=== PATIENT | male | born 1995 | race Caucasian/White ===

== ENCOUNTER 2019-12-21 05:44 | Outpatient (RCR) | payer OTHER ==
[~2019-12-21] VITALS: Ht 187 cm; Wt 88.1 kg
[2019-12-21] MEDS ORDERED: VORT10TA PO (12:35)
[2019-12-21] MEDS ORDERED: AMPH20TA2 PO (12:35)
[2019-12-21] MEDS ORDERED: FINA1TAB16 PO (12:35)
== END 2019-12-21 14:00 | disposition home or self-care (01) ==
LOC: PREOP 05:44
PROVIDERS: ATTEND Surgery
DX: Z01.818 Encounter for other preprocedural examination (principal)

== ENCOUNTER → 2019-12-23 | Outpatient (CLI) | payer OTHER ==
[~2019-12-23] MED LIST: AMPH20TA2 PO; FINA1TAB16 PO; VORT10TA PO
== END ==
LOC: LAB FS 10:05
PROVIDERS: ATTEND Surgery
DX: K62.5 Hemorrhage of anus and rectum (principal); Z20.828 Contact with and (suspected) exposure to other viral communicable diseases
CPT/HCPCS: 87635

== ENCOUNTER 2019-12-26 09:27 | Day surgery (SDC) | payer OTHER ==
[2019-12-26] VITALS (9 sets, daily range): BP systolic 77–132; BP diastolic 44–87
[~2019-12-26] VITALS: Ht 187 cm; Wt 88.1 kg
[2019-12-26] MEDS ORDERED: LACTATED RINGERS 1,000 ML IV ONE (09:37)
[2019-12-26] MEDS ORDERED: LACTATED RINGERS 1,000 ML IV STA (09:49)
--- NOTE | 2019-12-26 10:30 | Progress Note-Pre Operative ---
Pre-Operative Progress Note H&P Reviewed The H&P was reviewed, patient examined and no changes noted. Time Seen by Provider: 10:28 Date H&P Reviewed: Dec 26, 2019 Time H&P Reviewed: 10: Pre-Operative Diagnosis: rectal bleed SAMEERA HYATT DO Dec 26, 2019 10:30
[2019-12-26] MEDS ORDERED: MIDAZOLAM 2 MG/2 ML (VERSED) VIAL ONE (10:33)
[2019-12-26] MEDS ORDERED: PROPOFOL INJECTION 50 ML IV ONE (10:33)
--- NOTE | 2019-12-26 10:58 | Progress Note-Post Operative ---
Post-Operative Progess Note Surgeon (s)/Cam Maker (s) Surgeon SAMEERA HYATT DO Cam Maker: VENUS Cohen Pre-Operative Diagnosis rectal bleed Post-Operative Diagnosis same plus internal hemorrhoids anal fissure Procedure & Operative Findings Date of Procedure 12/26/19 Procedure Performed/Findings colonoscopy Anesthesia Type IV sedation by PRESSURE DISPATCHER Estimated Blood Loss Estimated blood loss (mL): none Specimens/Packing Specimens Removed none SAMEERA HYATT DO Dec 26, 2019 10:58
--- NOTE | 2019-12-26 10:59 | Endoscopy Discharge Instruct ---
Endo Procedure/Findings Findings 1.: Internal Hemorrhoids 2.: Other Findings (Anal fissure) Discharge Instructions - Activity: You might feel a little sleepy until tomorrow. This is due to the medicine you received to relax you. Until tomorrow, you should: NOT drive a car, operate machinery or power tools. NOT drink any alcoholic beverages. NOT make any important decisions or sign importortant papers. Do not return to work until tomorrow, unless otherwise instructed. Resume previous activities tomorrow. Diet: Start by taking liquids. If you tolerate liquids, advance to solid food. 1.: High Fiber Diet Notify Physician - If you experience excessive bleeding, unusual abdominal pain, fever, or chest pain, contact your doctor immediately. SAMEERA HYATT DO Dec 26, 2019 10:59
--- NOTE | 2019-12-26 13:53 | Anesthesia-General Post-Op ---
MAC Patient Condition Mental Status/LOC: Same as Preop Cardiovascular: Satisfactory Nausea/Vomiting: Absent Respiratory: Satisfactory Pain: Controlled Complications: Absent Post Op Complications Complications None Follow Up Care/Instructions Patient Instructions None needed. Anesthesiology Discharge Order Discharge Order Patient is doing well, no complaints, stable vital signs, no apparent adverse anesthesia problems. No complications reported per nursing. CHANDA VO CRNA Dec 26, 2019 13:53
--- NOTE | 2019-12-27 03:52 | OPERATIVE REPORT ---
DATE OF SERVICE: 12/26/2019 PREOPERATIVE DIAGNOSIS: Rectal bleed. POSTOPERATIVE DIAGNOSES: Internal hemorrhoids, anal fissure. PROCEDURE: Colonoscopy. SURGEON: Conor Engle DO DEMOLITIONIST: Uzair Brush MS3 ANESTHESIA: IV sedation by the VOIP NETWORK ENGINEER. SPECIMENS: None. BLOOD LOSS: None. FLUIDS: Per anesthesia. POSTOPERATIVE CONDITION: Stable. INDICATION FOR PROCEDURE: The patient is a 24-year-old male who has a history of rectal bleeding, needed a workup. FINDINGS: The patient had some anal fissures and some very small internal hemorrhoids. No other obvious pathology. PROCEDURE NOTE: After informed consent was obtained, the patient was brought to the endoscopy suite, placed in bed in left lateral decubitus position. He was administered IV sedation by the VOIP NETWORK ENGINEER who then monitored his vitals the entire time, heart rate, blood pressure and pulse ox and the scope was inserted, pushed all the way into the cecum about 150 cm, able to get to the cecum, took a picture of appendiceal orifice, noted the ileocecal valve and then slowly withdrew the scope insufflating to look circumferentially at the richardson looking the cecum, up the ascending colon to the hepatic flexure, then down the transverse colon and splenic flexure, into the descending colon, then down the sigmoid, finally into the rectum, retroflexed in rectal vault, saw some very minimal internal hemorrhoids. 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 Took a picture of this. The patient tolerated the procedure, recovered in endoscopy suite. Job ID: [id number] DocumentID: [id number] Dictated Date: 12/26/2019 17:58:08 Resource Agent Date: 12/27/2019 03:51:38 Dictated By: CONOR ENGLE DO
== END 2019-12-26 12:00 | disposition home or self-care (01) ==
LOC: ENDO 09:27
PROVIDERS: ATTEND Surgery
DX: K64.8 Other hemorrhoids (principal); K60.2 Anal fissure, unspecified; F41.1 Generalized anxiety disorder; F32.9 Major depressive disorder, single episode, unspecified; F90.9 Attention-deficit hyperactivity disorder, unspecified type; Z79.899 Other long term (current) drug therapy; Z82.49 Family history of ischemic heart disease and other diseases of the circulatory system